=== PATIENT | female | born 1985 | race African-American/Black ===

== ENCOUNTER 2023-05-02 17:17 | Outpatient (CLI) | payer OTHER, SELFPAY | END 2023-05-02 17:18 | disposition home or self-care (01) | LOC: NFLDREF 05-03 12:16 | PROVIDERS: Visit Provider Family Medicine | DX: R30.0 Dysuria (principal); N39.0 Urinary tract infection, site not specified; N30.01 Acute cystitis with hematuria | CPT/HCPCS: 87086 ==